=== PATIENT | female | born 1990 | race Two or more races ===

== ENCOUNTER → 2023-11-21 | Emergency (ER) | payer OTHER ==
[~2023-11-21] VITALS: Ht 167.6 cm; Wt 65.8 kg
[~2023-11-21] MED LIST: CEPHALEXIN500 M1 PO
== END | disposition left against medical advice (07) ==
LOC: ER 14:09
DX: R07.0 Pain in throat (principal); R50.9 Fever, unspecified; Z88.6 Allergy status to analgesic agent